=== PATIENT | female | born 1950 | race Caucasian/White ===

== ENCOUNTER 2019-12-07 06:58 | Emergency (ER) | payer MEDICARE ==
[~2019-12-07] VITALS: Ht 157.5 cm; Wt 72.4 kg
[2019-12-07 07:03] VITALS: BP 133/62
[2019-12-07] MEDS ORDERED: KETOROLAC 30 MG/1 ML IM ONE (07:30)
[2019-12-07] MEDS ORDERED: KETOROLAC 30 MG/1 ML ONE (07:35)
[2019-12-07] MEDS ORDERED: MELO15TA24 PO (07:39)
== END 2019-12-07 09:17 | disposition home or self-care (01) ==
LOC: ED 07:35
DX: M25.561 Pain in right knee (principal); M19.90 Unspecified osteoarthritis, unspecified site
CPT/HCPCS: 29505; 73564; 96372; 99283; J1885

== ENCOUNTER → 2021-03-21 | Outpatient (CLI) | payer MEDICARE ==
[~2021-03-21] MED LIST: MELO15TA24 PO
== END | disposition home or self-care (01) ==
LOC: CFH 12:09
PROVIDERS: ATTEND Student in an Organized Health Care Education/Training Program
DX: Z12.2 Encounter for screening for malignant neoplasm of respiratory organs (principal); J47.9 Bronchiectasis, uncomplicated; T17.890A Other foreign object in other parts of respiratory tract causing asphyxiation, initial encounter; R91.8 Other nonspecific abnormal finding of lung field; J98.4 Other disorders of lung; X58.XXXA Exposure to other specified factors, initial encounter; Y93.89 Activity, other specified; Y92.89 Other specified places as the place of occurrence of the external cause; Y99.8 Other external cause status; F17.218 Nicotine dependence, cigarettes, with other nicotine-induced disorders
CPT/HCPCS: 71271